=== PATIENT | female | born 1990 | race Caucasian/White ===

== ENCOUNTER 2024-06-27 08:43 | Emergency (ER) | payer OTHER, SELFPAY ==
[2024-06-27 09:02] VITALS: BP 113/61; PULSE 101; RESP 18; TEMP 37.1; O2SAT 98; BMI 24.0
--- NOTE | 2024-06-27 09:15 | DI.US.S_ITS ---
PROCEDURE: US PELVIC COMPLETE INDICATIONS: PAIN AND BLEEDING. TECHNIQUE: Real-time scanning was performed of the pelvic organs, with image documentation. Additional endovaginal scanning was necessary due to incomplete visualization of the adnexal and endometrial structures by transabdominal scanning. COMPARISON: None. FINDINGS: Uterus: 8.6 x 4.6 x 4.2 cm. No intrauterine gestational sac is identified. Endometrium measures 3 mm. Ovaries: Nonenlarged ovaries bilaterally. No acute abnormality. Other: No pathologic free fluid. IMPRESSION: No acute sonographic abnormality in the pelvis. Endometrium measures 3 mm. (If the patient has a positive test, this is a of unknown location and clinical and imaging follow-up is suggested in 14 days or sooner) Dictated by: Law Chan M.D. on 06/27/2024 at 11:27 Approved by: Law Chan M.D. on 06/27/2024 at 11:29
[2024-06-27 09:23] VITALS: BP 122/70; PULSE 98; O2SAT 98
[2024-06-27 09:30] VITALS: BP 114/65; PULSE 89; O2SAT 100
--- NOTE | 2024-06-27 09:35 | ED.GENADULT ---
HPI - General Adult General Chief complaint: OB/Uterine Contractions Stated complaint: abd pain/cramping 6 wks Time Seen by Provider: 06/27/24 09:12 Source: patient Mode of arrival: Family Vehicle History of Present Illness HPI narrative: 34-year-old female. at what was initially thought to be 6 weeks EGA however is closer to 4 weeks EGA based on last menstrual. He was here for evaluation of a couple days of vaginal bleeding. Cramping within the past 24 hours but nothing currently. Some nausea but no vomiting. No fevers. No urinary symptoms. Did have some loose stools but no diarrhea. Related Data Allergies Allergy/AdvReac Type Severity Reaction Status Date / Time acetaminophen Allergy Swelling Verified 06/27/24 09:06 of Lip/Tongue/Throat Review of Systems Review of Systems Narrative: See HPI Patient History Social History Smoking Status: Never smoker Smoking Status: Never smoker alcohol intake frequency: 0-2 drinks per day Substance Use Type: does not use Exam Initial Vital Signs Initial Vital Signs: Vital Signs Temperature 98.8 F 06/27/24 09:02 Pulse Rate 101 H 06/27/24 09:02 Respiratory Rate 18 06/27/24 09:02 Blood Pressure 113/61 06/27/24 09:02 Pulse Oximetry 98 06/27/24 09:02 Oxygen Delivery Method Room Air 06/27/24 09:02 Const General: cooperative, comfortable and No ill appearing HENMT Head: normal to inspection Resp Effort & Inspection: normal respiratory effort Cardio Rate: regular rate GI Inspection: normal to inspection and non-distended Skin General: no rashes or lesions noted Neuro General: patient alert, patient awake and moves all extremities Extrem General: capillary refill normal Course Orders Ordered: ED Orders 06/27/24 09:15 US pelvic complete Stat 06/27/24 09:45 ABO RH Type Stat Complete Blood Count AUTO DIFF Stat Comprehensive Metabolic Panel Stat HCG Quantitative /Beta subunit Stat Lipase Stat Discontinued Medications Sodium Chloride (Normal Saline 0.9%) 1,000 mls @ 1,000 mls/hr IV BOLUS ONE Stop: 06/27/24 10:11 Last Admin: 06/27/24 10:22 Dose: 1,000 mls/hr Documented By: JAQUI Vital Signs Vital signs: Vital Signs - 8 hr 06/27/24 09:02 09/10/24 09:23 06/27/24 09:23 Temperature 98.8 F Pulse Rate 101 H 98 H Respiratory Rate 18 Blood Pressure 113/61 122/70 Pulse Oximetry 98 98 Oxygen Delivery Method Room Air 06/27/24 09:30 06/27/24 09:30 06/27/24 10:02 Temperature Pulse Rate 89 Respiratory Rate Blood Pressure 114/65 110/58 L Pulse Oximetry 100 Oxygen Delivery Method 06/27/24 10:02 06/27/24 10:30 06/27/24 10:30 Temperature Pulse Rate 83 70 Respiratory Rate Blood Pressure 103/65 Pulse Oximetry 100 100 Oxygen Delivery Method 06/27/24 11:00 06/27/24 11:00 Temperature Pulse Rate 76 Respiratory Rate Blood Pressure 108/63 Pulse Oximetry 100 Oxygen Delivery Method Medical Decision Making Lab Data Lab results reviewed: Yes I reviewed the patient's lab results. 06/27/24 09:45 06/27/24 09:45 Labs: Lab Results 06/27/24 Range/Units 09:45 WBC 10.9 (4.5-11.0) X10^3/uL RBC 4.28 (4.0-5.2) X10^6/uL Hgb 13.6 (12.0-16.0) g/dL Hct 40.0 (36-46) % MCV 93.4 (80-100) fL MCH 31.7 (26-34) PG MCHC 33.9 (30-36) % RDW 12.3 (11.6-14.8) % Plt Count 275 (150-400) X10^3/uL Neut % (Auto) 78.8 H (50-75) % Lymph % (Auto) 15.6 L (25-40) % [place] % (Auto) 4.7 (3-14) % Eos % (Auto) 0.3 L (2-4) % Baso % (Auto) 0.6 (0-2) % Neut # (Auto) 8600 H (1248-5474) /uL Lymph # (Auto) 1700 (4867-1508) /uL [place] # (Auto) 500 (0-900) /uL Eos # (Auto) 0 (0-450) /uL Baso # (Auto) 100 (0-100) /uL Sodium 137 (137-145) mmol/L Potassium 3.8 (3.4-5.1) mmol/L Chloride 107 (98-107) mmol/L Carbon Dioxide 21 L (22-32) mmol/L BUN 13 (7-17) mg/dL Creatinine 0.78 (0.52-1.04) mg/dL Estimated GFR > 60 (>60) mL/min BUN/Creatinine Ratio 16.7 (6-22) Glucose 95 (70-100) mg/dL Calcium 9.3 (8.4-10.2) mg/dL Total Bilirubin 0.7 (0.2-1.3) mg/dL AST 24 (14-36) IU/L ALT 17 (<35) IU/L Alkaline Phosphatase 65 (38-126) U/L Total Protein 7.3 (6.3-8.2) g/dL Albumin 4.5 (3.5-5.0) g/dL Globulin 2.8 (1.7-4.1) g/dL Albumin/Globulin Ratio 1.6 (1.0-2.8) Lipase 57 (23-300) U/L HCG, Quant 59.02 mIU/mL Serum , Qual Cancelled Blood Type O Positive Urine Dip Bedside Urine Glucose Negative Bedside Urine Bilirubin - Negative Bedside Urine Ketone - Negative Urine Specific [place] 1.015 Bedside Urine Occult Blood - Negative Bedside Urine pH 6.0 Bedside Urine Protein - Negative Bedside Urine Urobilinogen - Negative Bedside Urine Nitrite - Negative Bedside Urine Leukocytes - Negative Esterase Point of care testing: Urine Dip Bedside Urine Glucose Negative Bedside Urine Bilirubin - Negative Bedside Urine Ketone - Negative Urine Specific [place] 1.015 Bedside Urine Occult Blood - Negative Bedside Urine pH 6.0 Bedside Urine Protein - Negative Bedside Urine Urobilinogen - Negative Bedside Urine Nitrite - Negative Bedside Urine Leukocytes - Negative Esterase Imaging Data US - OB: Radiologist's Impression: PROCEDURE: US PELVIC COMPLETE INDICATIONS: PAIN AND BLEEDING. TECHNIQUE: Real-time scanning was performed of the pelvic organs, with image documentation. Additional endovaginal scanning was necessary due to incomplete visualization of the adnexal and endometrial structures by transabdominal scanning. COMPARISON: None. FINDINGS: Uterus: 8.6 x 4.6 x 4.2 cm. No intrauterine gestational sac is identified. Endometrium measures 3 mm. Ovaries: Nonenlarged ovaries bilaterally. No acute abnormality. Other: No pathologic free fluid. IMPRESSION: No acute sonographic abnormality in the pelvis. Endometrium measures 3 mm. MDM Narrative Medical decision making narrative: Ultrasound does not show signs of intrauterine although her quantitative level was less than 100. Given her history I have concerns that this is a threatened miscarriage because the patient initially thought that she was 6 weeks along. She was Rh positive. No urinary symptoms. Informed the patient that she was going to need a repeat quantitative level in 48 hours from now. She was given instructions for this. She was given strict return precautions. She expressed understanding and agreement with plan. Discharge Plan Departure Patient Disposition: Home Clinical Impression: Bleeding in early Instructions: Early Bleeding Activity Restrictions/Additional Instructions: You will need a repeat lab draw in 48 hours ( afternoon). Your primary doctor can do this or your OB doctor. If needed you can return to the emergency department. Until then continue taking all of your medications. Keep all of your scheduled medical appointments. Return to the emergency department for fevers, worsening pain, bleeding multiple pads an hour for multiple hours in a row or any other new symptoms. Referrals: Miscellaneous,[facility] [Primary Care Provider] - Stand Alone Forms: Patient Portal/API
[2024-06-27 09:58] LABS: Add Manual Diff / Slide Review NO; Basophils Absolute Auto 100 /uL (0-100); Basophils Percent Auto 0.6 % (0-2); Eosinophils Absolute Auto 0 /uL (0-450); Eosinophils Percent Auto 0.3 % (2-4); Hemoglobin 13.6 g/dL (12.0-16.0); Lymphocytes Absolute Auto 1700 /uL (1100-4500); Lymphocytes Percent Auto 15.6 % (25-40); Mean Corpuscular HGB Conc 33.9 % (30-36); Mean Corpuscular Hemoglobin 31.7 PG (26-34); Mean Corpuscular Volume 93.4 fL (80-100); Monocytes Absolute Auto 500 /uL (0-900); Monocytes Percent Auto 4.7 % (3-14); Neutrophils Absolute Auto 8600 /uL (1500-7000); Neutrophils Percent Auto 78.8 % (50-75); Platelet Count 275 X10^3/uL (150-400); Red Blood Cell Count 4.28 X10^6/uL (4.0-5.2); Red Cell Distribution Width 12.3 % (11.6-14.8); White Blood Cell Count 10.9 X10^3/uL (4.5-11.0)
[2024-06-27 10:02] VITALS: BP 110/58; PULSE 83; O2SAT 100
[2024-06-27 10:12] LABS: Alanine Aminotransferase 17 IU/L (<35); Albumin 4.5 g/dL (3.5-5.0); Albumin Globulin Ratio 1.6 (1.0-2.8); Alkaline Phosphatase 65 U/L (38-126); Aspartate Aminotransferase 24 IU/L (14-36); BUN Creatinine Ratio 16.7 (6-22); Bilirubin Total 0.7 mg/dL (0.2-1.3); Blood Urea Nitrogen 13 mg/dL (7-17); Calcium 9.3 mg/dL (8.4-10.2); Carbon Dioxide 21 mmol/L (22-32); Chloride 107 mmol/L (98-107); Estimated Glomerular Filt Rate > 60 mL/min (>60); Globulin 2.8 g/dL (1.7-4.1); Glucose 95 mg/dL (70-100); HEMOLYSIS 16 (0-50); Lipase 57 U/L (23-300); Potassium 3.8 mmol/L (3.4-5.1); Sodium 137 mmol/L (137-145); Total Protein 7.3 g/dL (6.3-8.2)
[2024-06-27] MEDS: SODIUM CHLORIDE 0.9% 1,000 ML 1000 ML IV (10:22)
[2024-06-27 10:29] LABS: HCG Quantitative /Beta subunit 59.02 mIU/mL
[2024-06-27 10:30] VITALS: BP 103/65; PULSE 70; O2SAT 100
[2024-06-27 11:00] VITALS: BP 108/63; PULSE 76; O2SAT 100
== END 2024-06-27 11:20 | disposition home or self-care (01) ==
PROVIDERS: Emergency Provider Emergency Medicine
DX: O20.9 Hemorrhage in early pregnancy, unspecified (principal); Z3A.01 Less than 8 weeks gestation of pregnancy
CPT/HCPCS: 36415; 76830; 76856; 80053; 81003; 83690; 84702; 85025; 86900; 86901; 96360; 99284